=== PATIENT | female | born 1980 | race Caucasian/White ===

== ENCOUNTER 2016-04-08 19:22 | Emergency (ER) | payer MEDICARE, OTHER ==
[~2016-04-08] VITALS: Ht 172.7 cm; Wt 84.0 kg
[2016-04-08 19:30] VITALS: BP 139/92; PULSE 92; RESP 16; TEMP 99.6; O2SAT 98
[2016-04-08] MEDS ORDERED: LYRI100C PO (20:25)
[2016-04-08] MEDS ORDERED: IBUP800T23 PO (20:25)
[2016-04-08] MEDS ORDERED: ADVA250A INH (20:25)
[2016-04-08 21:32] LABS: BLOOD, URINE TRACE (NEG); GLUCOSE,URINE NEG (NEG); KETONE, URINE NEG (NEG); NITRITE,URINE NEG (NEG)
[2016-04-08 21:35] LABS: URINE COLOR YELLOW (YELLW/STRAW)
[2016-04-08 21:40] LABS: COMMENT (UR) CULT NOT INDICATED; CULTURE IF INDICATED CULT NOT INDICATED; MUCUS URINE MOD /lpf (OCC); SQUAMOUS EPITHELIAL CELL URINE 0-5 /hpf (0-5)
[2016-04-08 22:31] VITALS: BP 144/93; PULSE 78; RESP 16; O2SAT 98
[2016-04-08 22:32] VITALS: TEMP 98.4
[2016-04-08] MEDS ORDERED: METR0.7528 VAGINAL (22:42)
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
[2016-04-08] MEDS ORDERED: LIDOCAINE HCL 1% 50 ML VIAL IM ONE (22:45)
[2016-04-08] MEDS ORDERED: cefTRIAXone INJ 250 MG in SODIUM CHLORIDE 0.9% INJ 100 ML IV ONE (22:45)
[2016-04-08] MEDS ORDERED: cefTRIAXone 250 MG VIAL IM ONE (22:45)
[2016-04-08] MEDS ORDERED: AZITHROMYCIN 250 MG TAB PO ONE (23:00)
[2016-04-09 02:57] LABS: CHLAMYDIA PCR NOT DETECTED (NOT DETECT); NEISSERIA PCR NOT DETECTED (NOT DETECT)
[2016-04-09] MEDS ORDERED: AZITHROMYCIN 250 MG TAB PO SCH (09:00)
== END 2016-04-08 23:32 | disposition home or self-care (01) ==
LOC: PHED 19:22
DX: N76.0 Acute vaginitis (principal); M79.7 Fibromyalgia; J44.9 Chronic obstructive pulmonary disease, unspecified; F90.9 Attention-deficit hyperactivity disorder, unspecified type; F17.210 Nicotine dependence, cigarettes, uncomplicated
CPT/HCPCS: 81001; 84703; 87210; 87491; 87591; 96372; 99283; J0696